=== PATIENT | male | born 1995 | race Caucasian/White ===

== ENCOUNTER 2017-09-12 13:14 | Emergency (ER) | payer OTHER ==
[~2017-09-12] VITALS: Ht 185.4 cm; Wt 88.0 kg
[2017-09-12 15:55] VITALS: BP 121/79
== END 2017-09-12 15:30 | disposition home or self-care (01) ==
LOC: ED 13:14
DX: H65.92 Unspecified nonsuppurative otitis media, left ear (principal); M79.1 Myalgia; J02.9 Acute pharyngitis, unspecified

== ENCOUNTER 2019-06-17 10:03 | Inpatient (IN) | payer OTHER ==
[~2019-06-17] VITALS: Ht 185.4 cm; Wt 84.8 kg
--- NOTE | 2019-06-17 10:20 | NUR ---
DR PINTO AT BEDSIDE FOR MSE.
--- NOTE | 2019-06-17 10:32 | NUR ---
RT AT BEDSIDE FOR BREATHING TX.
[2019-06-17 11:52] LABS: PLATELET COUNT 234 x10^3mcL (130-400); RED CELL DISTRIBUTION WIDTH 13.2 % (11.5-14.5)
[2019-06-17 12:14] LABS: ALKALINE PHOSPHATASE 124 U/L (46-116); ALT/SGPT 78 U/L (16-63); AST/SGOT 54 U/L (15-37); BILIRUBIN TOTAL 1.3 mg/dL (0.20-1.00); CALCIUM 8.2 mg/dL (8.5-10.1); CARBON DIOXIDE 22.9 mmol/L (21-32); CHLORIDE SERUM 99 mmol/L (98-107); CREATININE SERUM 1.1 mg/dL (0.7-1.3); GFR1 > 60 mL/min; GLUCOSE SERUM 130 mg/dL (74-106); SODIUM SERUM 138 mmol/L (136-145)
--- NOTE | 2019-06-17 12:14 | NUR ---
PT MEDICATED PER EMAR, ON FULL CM, IN POSTION OF COMFORT, CALL LIGHT WITHIN REACH.
[2019-06-17 12:17] LABS: BAND NEUTROPHIL 3 % (0-10); BASOPHIL 0 % (0-2); METAMYELOCTE 1 % (0-2); MONOCYTE 6 % (0-7); SEGMENTED NEUTROPHILS 81 % (37-75)
[2019-06-17 12:18] LABS: PLATELET MORPHOLOGY PLATELETS NORMAL; rbc morphology (normal/abnorm) NORMAL (NORMAL)
[2019-06-17 12:19] LABS: ALBUMIN 2.8 g/dL (3.4-5.0); POTASSIUM SERUM 2.9 mmol/L (3.5-5.1); TOTAL PROTEIN, SERUM 8.4 g/dL (6.4-8.2)
--- NOTE | 2019-06-17 13:52 | NUR ---
PT RESTING ON ED GURNEY, RESPS E/U, NAD NOTED, ON FULL CM, CALL LIGHT WITHIN REACH, FLUIDS INFUSING NO S/S OF INFILTRATION.
[2019-06-17 13:55] LABS: microscopic required? NO
[2019-06-17 14:18] LABS: UA SPECIFIC GRAVITY <=1.005 (1.005-1.035); urine erythrocyte NEGATIVE (NEGATIVE)
--- NOTE | 2019-06-17 14:46 | NUR ---
PT IN POSITION OF COMFORT ON HIS PHONE, POTASSIUM INFUSIN PER MD ORDER AND EMAR, RESPS E/U, PT IN NAD AT THIS TIME, WILL CONTINUE TO MONITOR, CALL LIGHT WITHIN REACH
--- NOTE | 2019-06-17 15:20 | NUR ---
PT TAKEN TO CT, AMBULATED WITH STEADY GAIT, NAD NOTED.
--- NOTE | 2019-06-17 15:48 | NUR ---
REPORT GIVEN TO RUSS MAJANO TO ASSUME CARE OF PT.
--- NOTE | 2019-06-17 16:09 | NUR ---
RECEIVED PT FROM ED VIA AMARILYS, CAME IN DUE TO CHEST PAIN AND COUGH X1 WEEK. AAOX4. DENIES HEADACHE/DIZZINESS. NO SOB NOTED, LUNG SOUND CTA. STATED THAT HE HAS PRODUCTIVE COUGH, ABLE TO EXPECTORATE SMALL AMOUNTS OF YELLOW PHLEGM. DENIES CHEST PAIN/PRESSURE AT THIS TIME, SR ON THE MONITOR. DENIES ABDOMINAL DISCOMFORT. VOIDS. RECEIVED PT FROM ED W/ NS AND POTASSIUM CHLORIDE ONGOING. IV SITE ON THE LAC IS PATENT AND INTACT. SIDE RAILS UPX2. CALL LIGHT ON REACH. ENDORSED TO PRIMARY NURSE MELINDA FOR CONTINUITY OF CARE
[2019-06-17 16:23] VITALS: BP 124/74
[2019-06-17 16:31] VITALS: Ht 185.4 cm; Wt 84.8 kg
--- NOTE | 2019-06-17 16:48 | NUR ---
RECEIVED REPORT ASSUMING PT CARE RESPONSABILITY.
--- NOTE | 2019-06-17 18:40 | NUR ---
PT RESTING AT THIS TIME. DENIES ANY DISCOMFORT. NO RESPIRATORY DISTRESS OR COMPLAINS AT THIS TIME. CALL LIGHT IN REACH NEEDS ATTENDED TO.
--- NOTE | 2019-06-17 19:20 | NUR ---
RECEIVED PT FROM PREVIOUS SHIFT NURSE. PT AOX4, DENIES MARTIN/DIZZINESS. TELE #13, NSR WITH SLIGHTLY ELEVATED T WAVE. DENIES CP/PRESSURE. DENIES SOB/DIFFICULTY BREATHING, ON RA. IV TO LAC, INTACT AND PATENT. BED IN LOWEST POSITION. CALL LIGHT WITHIN REACH. WILL CONTINUE TO MONITOR.
[2019-06-17 20:43] VITALS: BP 115/75
--- NOTE | 2019-06-18 01:23 | NUR ---
PT RESTING IN BED. RR EVEN AND UNLABORED. IN NO ACUTE DISTRESS. CALL LIGHT WITHIN REACH. BED IN LOWEST POSITION. WILL CONTINUE TO MONITOR.
[2019-06-18 05:47] VITALS: BP 125/80
[2019-06-18 06:28] LABS: PLATELET COUNT 248 x10^3mcL (130-400); RED CELL DISTRIBUTION WIDTH 13.4 % (11.5-14.5)
[2019-06-18 06:40] LABS: CALCIUM 8.6 mg/dL (8.5-10.1); CHLORIDE SERUM 104 mmol/L (98-107); CREATININE SERUM 0.8 mg/dL (0.7-1.3); GFR1 > 60 mL/min; GLUCOSE SERUM 135 mg/dL (74-106); POTASSIUM SERUM 4.6 mmol/L (3.5-5.1); SODIUM SERUM 140 mmol/L (136-145)
--- NOTE | 2019-06-18 07:25 | NUR ---
PATIENT A/OX4, ABLE TO MAKE NEEDS KNOWN AND FOLLOW COMMANDS, TELE 13, READING NSR, DENIES CP. LUNGS CTA, NO RESP DISTRESS NOTED ON RA, PATIENT REPORTS DRY COUGH THROUGHOUT THE NIGHT "I THINK FROM THE COLD AIR" AIR CONDITIONER DECREASED. DENIES HAVING ANY SPUTUM OR DIFFICULTY BREATHING. BOWEL SOUNDS ACTIVE, DENIES N/V. DENIES PAIN. IV ACCESS TO LAC SITE WNL. SKIN INTACT. CALL LIGHT WITHIN REACH AND DEMONSTRATES UNDERSTANDING ON HOW TO USE.
[2019-06-18] MEDS ORDERED: LEVOFLOXACIN500 M1 PO (07:59)
[2019-06-18 08:24] VITALS: BP 133/85
--- NOTE | 2019-06-18 08:45 | NUR ---
SPOKE TO DR RUDD VIA PHONE, INFORMED HIM OF PATIENT REQUESTING FOR WORK NOTE AND THAT HE STATES HE DOESNT KNOW IF HE HAS A PRIMARY DOCTOR. PER DR RUDD, PATIENT CAN COME BY HIS OFFICE TO [employer]ICER THE WORK NOTE. PATIENT MADE AWARE.
[2019-06-18 08:52] VITALS: BP 133/85
--- NOTE | 2019-06-18 09:45 | NUR ---
DISCHARGE INSTRUCTIONS AND PRESCRIPTION GIVEN, PATIENT VERBALIZED UNDERSTANDING. IV DC'D CATH INTACT, TELE RETURNED TO TECH STATION. ALL QUESTIONS/CONCERNS ADDRESSED. INFORMED PATIENT TO USE CALL LIGHT WHEN READY TO LEAVE SO THAT HE MAY BE ACCOMPANIED, VERBALIZED UNDERSTANDING.
[2019-06-18 11:45] LABS: MONOCYTE 4 % (0-7); SEGMENTED NEUTROPHILS 91 % (37-75)
[2019-06-18 12:06] LABS: rbc morphology (normal/abnorm) NORMAL (NORMAL)
== END 2019-06-18 10:00 | disposition home or self-care (01) | DRG 720 ==
LOC: ED 10:03 → DU 15:13
PROVIDERS: Emergency Medicine; ADMIT Internal Medicine
DX: A41.9 Sepsis, unspecified organism (principal); J18.1 Lobar pneumonia, unspecified organism; E87.6 Hypokalemia; F17.210 Nicotine dependence, cigarettes, uncomplicated; Z83.3 Family history of diabetes mellitus; F12.90 Cannabis use, unspecified, uncomplicated
CPT/HCPCS: 36600; 99406; G0378; J0696; J1644; J1956; J2930; J3480; J7030; J7040; J7613; J7644; Q9967